=== PATIENT | female | born 1980 | race Caucasian/White ===

== ENCOUNTER 2017-08-19 05:10 | Emergency (ER) | payer OTHER, MEDICAID ==
[~2017-08-19] VITALS: Ht 170.2 cm; Wt 74.8 kg
[2017-08-19] MEDS ORDERED: ZYRTEC10 M5 (05:24)
[2017-08-19 05:28] LABS: ABSOLUTE BASOPHILS 0.1 thou/uL (0.0-0.2); ABSOLUTE LYMPHOCYTES 2.5 thou/uL (0.8-5.3); ABSOLUTE MONOCYTES 0.2 thou/uL (0.0-1.2); ABSOLUTE NEUTROPHILS 7.6 thou/uL (1.6-8.1); BASOPHILS 0.8 %; EOSINOPHILS 0.1 %; HEMATOCRIT 46.2 % (37.0-47.0); HEMOGLOBIN 15.8 gm/dL (12.0-15.0); MCH 31.3 pg (26.0-34.0); MCHC 34.2 g/dL (28.0-37.0); MCV 91.4 fL (80.0-100.0); MONOCYTES 2.3 %; MPV 8.1 fl. (7.2-11.1); NUCLEATED RBCS 0 /100WBC; PLATELET COUNT* 269 thou/uL (150-400); POLYS 72.8 %; RBC 5.05 mil/uL (4.20-5.00); RDW-CV 13.2 % (10.5-14.5); WBC 10.4 thou/uL (4.0-11.0)
[2017-08-19 05:40] LABS: CALCIUM 8.4 mg/dL (8.5-10.1); CREATININE 0.9 mg/dL (0.6-1.3); POTASSIUM 3.7 mmol/L (3.5-5.1)
[2017-08-19 05:45] LABS: TOTAL BILIRUBIN 0.5 mg/dL (<0.1-1.0); TOTAL PROTEIN 7.9 g/dL (6.4-8.2)
[2017-08-19 06:56] LABS: AMP/METHAMP Negative (Negative); BARBITURATES Negative (Negative); BENZODIAZEPINES Negative (Negative); COCAINE Negative (Negative); METHADONE Negative (Negative); OPIATES Negative (Negative); PCP Negative (Negative); THC POSITIVE (Negative)
[2017-08-19 07:02] LABS: URINE BILIRUBIN NEGATIVE (Negative); URINE BLOOD NEGATIVE (Negative); URINE CLARITY CLEAR; URINE COLOR YELLOW; URINE GLUCOSE-RANDOM NEGATIVE (Negative); URINE KETONES NEGATIVE (Negative); URINE LEUKOCYTES-REFLEX NEGATIVE (Negative); URINE NITRITE-REFLEX NEGATIVE (Negative); URINE PROTEIN 1+ (Negative); URINE UROBILINOGEN 0.2 E.U./dl (0.2-1.0)
[2017-08-19] MEDS ORDERED: ZOFRAN ODT4 MG PO (07:55)
[2017-08-19] MEDS ORDERED: CARAFATE 1 GM TA1 GM PO (07:55)
[2017-08-19] MEDS ORDERED: PREVACID15 MG PO (07:55)
[2017-08-19 08:16] VITALS: BP 112/55
== END 2017-08-19 08:17 | disposition home or self-care (01) ==
LOC: M.ERS 05:10
PROVIDERS: Emergency Medicine
DX: R10.13 Epigastric pain (principal); F17.210 Nicotine dependence, cigarettes, uncomplicated; Z88.5 Allergy status to narcotic agent; Z88.8 Allergy status to other drugs, medicaments and biological substances; J45.909 Unspecified asthma, uncomplicated; Z90.710 Acquired absence of both cervix and uterus

== ENCOUNTER 2017-10-28 12:40 | Emergency (ER) | payer OTHER, MEDICAID ==
[~2017-10-28] VITALS: Ht 170.2 cm; Wt 77.1 kg
[~2017-10-28 12:40] MED LIST: CARAFATE 1 GM TA1 GM PO; PREVACID15 MG PO; ZOFRAN ODT4 MG PO; ZYRTEC10 M5
[2017-10-28] MEDS ORDERED: VENTOLIN HFA 1818 GM INH (12:56)
[2017-10-28] MEDS ORDERED: DOXYCYCLINE 10100 M1 PO (13:25)
[2017-10-28 14:03] VITALS: BP 152/83
[2017-10-31 11:12] LABS: F. TULARENSIS IGG Negative (()); F. TULARENSIS IGM Negative (())
[2017-10-31 16:11] LABS: B.burgdorf.IgG Negative (()); B.burgdorf.IgM Negative (())
== END 2017-10-28 14:04 | disposition home or self-care (01) ==
LOC: M.ERS 12:40
PROVIDERS: Nurse Practitioner Family
DX: S20.362A Insect bite (nonvenomous) of left front wall of thorax, initial encounter (principal); A69.20 Lyme disease, unspecified; F17.210 Nicotine dependence, cigarettes, uncomplicated; Z90.710 Acquired absence of both cervix and uterus; Z88.8 Allergy status to other drugs, medicaments and biological substances; W57.XXXA Bitten or stung by nonvenomous insect and other nonvenomous arthropods, initial encounter; Y93.89 Activity, other specified; Y92.89 Other specified places as the place of occurrence of the external cause; Y99.8 Other external cause status

== ENCOUNTER 2018-03-25 06:22 | Emergency (ER) | payer MEDICAID ==
[~2018-03-25] VITALS: Ht 170.2 cm; Wt 79.4 kg
[~2018-03-25 06:22] MED LIST changes: +DOXYCYCLINE 10100 M1 PO; +VENTOLIN HFA 1818 GM INH
[2018-03-25 07:00] LABS: URINE BILIRUBIN NEGATIVE (Negative); URINE BLOOD TRACE (Negative); URINE CLARITY CLEAR; URINE COLOR YELLOW; URINE GLUCOSE-RANDOM NEGATIVE (Negative); URINE KETONES TRACE (Negative); URINE LEUKOCYTES-REFLEX NEGATIVE (Negative); URINE NITRITE-REFLEX NEGATIVE (Negative); URINE PROTEIN NEGATIVE (Negative); URINE SPECIFIC GRAVITY 1.015 (1.005-1.030); URINE UROBILINOGEN 0.2 E.U./dl (0.2-1.0)
[2018-03-25 07:03] LABS: HEMOGLOBIN 15.3 gm/dL (12.0-15.0); MCH 31.9 pg (26.0-34.0); NUCLEATED RBCS 0 /100WBC; RBC 4.79 mil/uL (4.20-5.00); WBC 8.3 thou/uL (4.0-11.0)
[2018-03-25 07:05] LABS: ABSOLUTE LYMPHOCYTES 2.4 thou/uL (0.8-5.3); ABSOLUTE MONOCYTES 0.5 thou/uL (0.0-1.2); ABSOLUTE NEUTROPHILS 5.3 thou/uL (1.6-8.1); BASOPHILS 0.5 %; EOSINOPHILS 0.1 %; HEMATOCRIT 44.4 % (37.0-47.0); MCHC 34.4 g/dL (28.0-37.0); MCV 92.8 fL (80.0-100.0); MONOCYTES 6.2 %; MPV 8.4 fl. (7.2-11.1); PLATELET COUNT* 303 thou/uL (150-400); POLYS 64.2 %; RDW-CV 12.5 % (10.5-14.5)
[2018-03-25 07:11] LABS: CALCIUM 9.3 mg/dL (8.5-10.1); POTASSIUM 3.7 mmol/L (3.5-5.1)
[2018-03-25 07:11] LABS: AMP/METHAMP Negative (Negative); BARBITURATES Negative (Negative); BENZODIAZEPINES Negative (Negative); COCAINE POSITIVE (Negative); METHADONE Negative (Negative); OPIATES Negative (Negative); PCP Negative (Negative); THC POSITIVE (Negative)
[2018-03-25 07:15] LABS: ALBUMIN 3.9 g/dL (3.4-5.0); TOTAL BILIRUBIN 0.7 mg/dL (<0.1-1.0); TOTAL PROTEIN 7.6 g/dL (6.4-8.2)
[2018-03-25] MEDS ORDERED: ACIPHEX 20 MG T20 MG PO (08:14)
[2018-03-25 08:32] VITALS: BP 114/63
== END 2018-03-25 08:34 | disposition home or self-care (01) ==
LOC: M.ERS 06:22
PROVIDERS: Personal Emergency Response Attendant
DX: K29.70 Gastritis, unspecified, without bleeding (principal); J45.909 Unspecified asthma, uncomplicated; F17.210 Nicotine dependence, cigarettes, uncomplicated; Z90.710 Acquired absence of both cervix and uterus; Z79.899 Other long term (current) drug therapy; Z88.8 Allergy status to other drugs, medicaments and biological substances; Z88.6 Allergy status to analgesic agent

== ENCOUNTER 2020-07-31 00:41 | Emergency (ER) | payer OTHER, MEDICAID ==
[~2020-07-31] VITALS: Ht 170.2 cm; Wt 68.0 kg
[~2020-07-31 00:41] MED LIST changes: +ACIPHEX 20 MG T20 MG PO
[2020-07-31] MEDS ORDERED: XANAX 0.25 MG0.25 MG PO (00:56)
[2020-07-31] MEDS ORDERED: KLOR-CON M2020 MEQ PO (00:57)
[2020-07-31] MEDS ORDERED: HYDROXYZINE HCL25 M2 PO (00:58)
[2020-07-31 01:28] LABS: HEMATOCRIT 41.9 % (37.0-47.0); MCH 34.2 pg (26.0-34.0); MCHC 33.4 g/dL (28.0-37.0); MCV 102.3 fL (80.0-100.0); MPV 8.3 fl. (7.2-11.1); RBC 4.09 mil/uL (4.20-5.00); RDW-CV 14.4 % (10.5-14.5); WBC 7.8 thou/uL (4.0-11.0)
[2020-07-31 01:32] LABS: CALCIUM 8.4 mg/dL (8.5-10.1); CREATININE 0.9 mg/dL (0.6-1.3); POTASSIUM 3.1 mmol/L (3.5-5.1)
[2020-07-31 01:37] LABS: ALBUMIN 3.4 g/dL (3.4-5.0); TOTAL BILIRUBIN 0.5 mg/dL (<0.1-1.0); TOTAL PROTEIN 6.5 g/dL (6.4-8.2)
[2020-07-31 01:55] LABS: URINE BILIRUBIN NEGATIVE (Negative); URINE BLOOD NEGATIVE (Negative); URINE CLARITY CLEAR; URINE COLOR YELLOW; URINE GLUCOSE-RANDOM NEGATIVE (Negative); URINE KETONES NEGATIVE (Negative); URINE LEUKOCYTES-REFLEX NEGATIVE (Negative); URINE NITRITE-REFLEX NEGATIVE (Negative); URINE PROTEIN NEGATIVE (Negative); URINE SPECIFIC GRAVITY <= 1.005 (1.005-1.030); URINE UROBILINOGEN 0.2 E.U./dl (0.2-1.0)
[2020-07-31 02:04] LABS: AMP/METHAMP Negative (Negative); BARBITURATES Negative (Negative); BENZODIAZEPINES Negative (Negative); COCAINE Negative (Negative); METHADONE Negative (Negative); OPIATES POSITIVE (Negative); PCP Negative (Negative); THC POSITIVE (Negative)
[2020-07-31] MEDS ORDERED: KLOR-CON 10 ER10 MEQ PO (02:31)
[2020-07-31 02:55] VITALS: BP 136/75
--- NOTE | 2020-08-01 17:02 | EKG ---
[place] [address] ELECTROCARDIOGRAM REPORT Name: AISHA GLASS Room: [facility]#: [id number] Admission: 07/31/20 Attend Phys: Discharge: 07/31/20 Date of : 80 Date of Service: 07/31/20 0055 Report #: [id number] THIS REPORT FOR: //name// [facility] ED Test Date: 2020-07-31 Test Time: 00:55:14 Pat Name: AISHA FOX Department: Room: Gender: F [employer] [place]: [place] : 1980 Requested By: Alma Delia Araya Order Number: [id number] MD: Boom Francisco Measurements Intervals [place] Rate: 112 P: 73 CA: 113 QRS: 52 QRSD: 85 T: 16 QT: 318 QTc: 434 Interpretive Statements Sinus tachycardia Probable left atrial enlargement Borderline T abnormalities, anterior leads Baseline wander in lead(s) II,V3,V4,V6 No previous ECG available for comparison Electronically Signed On 08-01-2020 17:01:50 [employer] by Boom Francisco [email or web address] <ELECTRONICALLY SIGNED> By: Boom Francisco MD, [facility] 08/01/20 1701 0055 0055 Boom Francisco MD, [facility] /EPI
== END 2020-07-31 02:58 | disposition home or self-care (01) ==
LOC: M.ERS 00:41
PROVIDERS: Personal Emergency Response Attendant
DX: E87.6 Hypokalemia (principal); R00.2 Palpitations; J45.909 Unspecified asthma, uncomplicated; F17.210 Nicotine dependence, cigarettes, uncomplicated; Z88.5 Allergy status to narcotic agent; Z88.8 Allergy status to other drugs, medicaments and biological substances; Z90.710 Acquired absence of both cervix and uterus; Z98.890 Other specified postprocedural states; Z79.899 Other long term (current) drug therapy